=== PATIENT | male | born 1985 | race Caucasian/White ===

== ENCOUNTER 2016-03-23 19:33 | Emergency (ER) | payer BC ==
[2016-03-23] MEDS ORDERED: NEB-ALBUTEROL 2.5 MG/3 ML INH ONE (21:44)
== END 2016-03-23 23:00 | disposition home or self-care (01) ==
LOC: ER 19:33
CPT/HCPCS: 36415; 71010; 80053; 81003; 82553; 83880; 84484; 85025; 85379; 93005; 94640

== ENCOUNTER 2016-03-30 23:59 | Emergency (ER) | payer BC ==
[2016-03-31] MEDS ORDERED: ASPIRIN 81 MG CHEW TAB ONE (01:18)
== END 2016-03-31 02:18 | disposition home or self-care (01) ==
LOC: ER 23:59
DX: R07.1 Chest pain on breathing (principal); J45.40 Moderate persistent asthma, uncomplicated; J45.20 Mild intermittent asthma, uncomplicated; R59.9 Enlarged lymph nodes, unspecified; Z79.899 Other long term (current) drug therapy
CPT/HCPCS: 36415; 71010; 80053; 82550; 83735; 84484; 85025; 85610; 85730; 93005